=== PATIENT | male | born 1980 | race Caucasian/White ===

== ENCOUNTER 2016-08-10 21:37 | Emergency (ER) | payer BC ==
[2016-08-10 21:39] VITALS: BP 170/109; PULSE 83; RESP 16; TEMP 98.2; O2SAT 98
--- NOTE | 2016-08-10 21:44 | PD ---
Physical Exam Time Seen by Provider: 21:41 Narrative 35yo M requesting head CT. Has hx of hydrocephalus, brain CA, and surgery June 2015. Pressure GLASS all day. Cough, sinus and chest congestion x 1 week. Patient seen in triage. VS reviewed. Awaiting bed placement. Data Data Last Documented VS Vital Signs Date Time Temp Pulse Resp B/P Pulse Ox O2 Delivery O2 Flow Rate FiO2 08/10/16 21:39 98.2 83 16 170/109 98 Room Air MDM Supervised Visit with AIDE: Lissett Mccall Aug 10, 2016 21:44
[2016-08-10 21:55] VITALS: BP 154/98; PULSE 80; RESP 14; O2SAT 99
[2016-08-10 22:08] LABS: MEAN CORPUSCULAR HGB CONC 36.8 % (32.0-36.0)
[2016-08-10 22:28] LABS: AUTOMATED NEUTROPHIL # 5.5 TH/MM3 (1.8-7.7); BASOPHIL # 0.1 TH/MM3 (0-0.2); EOSINOPHIL # 0.3 TH/MM3 (0-0.4); EOSINOPHIL % 3.3 % (0.0-4.0); HEMATOCRIT 40.1 % (39.0-51.0); LYMPH % 27.1 % (9.0-44.0); LYMPHOCYTE # 2.5 TH/MM3 (1.0-4.8); MEAN CELL VOLUME 80.8 FL (80.0-100.0); MEAN CORPUSCULAR HEMOGLOBIN 29.8 PG (27.0-34.0); MONO % 8.9 % (0.0-8.0); NEUT % 59.7 % (16.0-70.0); PLATELET COUNT 344 TH/MM3 (150-450); RED BLOOD COUNT 4.97 MIL/MM3 (4.50-5.90); RED CELL DISTRIBUTION WIDTH 12.7 % (11.6-17.2); WHITE BLOOD COUNT 9.2 TH/MM3 (4.0-11.0)
[2016-08-10 22:29] LABS: HEMO FLAGS AUTO DIFF
--- NOTE | 2016-08-10 22:29 | PD ---
HPI Chief Complaint: Headache Time Seen by Provider: 22:00 Travel History International Travel<30 days: No Contact w/Intl Traveler<30days: No Traveled to known affect area: No History of Present Illness HPI 35yo M with PMH of brain cancer s/p resection 06/2015 here with c/o pressure in his head since this morning. States it feels similar to last time when he was diagnosed. Denies any fever, visual changes, chest pain, sob, n/v, abdominal pain, focal weakness or numbness or abnormal gait. Pt had hydrocephalus secondary to the tumor and had a [employer] shunt that became infected and subsequently removed. Pt has not needed another TEST B[employer] shunt because hydrocephalus resolved. He had radiation therapy 10/2015 and has been cancer free. Last MRI brain in 2016 showed no cancer. Pt is from [place]. Pt has had a recent cold and congestion. PFSH Past Medical History Cancer: Yes (Brain 2015) Radiation Therapy: Yes (2015) Tetanus Vaccination: < 5 Years Influenza Vaccination: No Past Surgical History Abdominal Surgery: Yes (hernia) Other Surgery: Yes (brain surgery x4) Social History Alcohol Use: Yes (Social) Tobacco Use: No Substance Use: No Allergies-Medications (Allergen,Severity, Reaction): Coded Allergies: No Known Allergies (Unverified , 08/10/16) Reported Meds & Prescriptions Reported Meds & Active Scripts Active No Active Prescriptions or Reported Medications Review of Systems Except as stated in HPI: all other systems reviewed are Neg Physical Exam Narrative GENERAL: 35yo M not in distress. SKIN: Focused skin assessment warm/dry. HEAD: Atraumatic. Normocephalic. EYES: Pupils equal and round at 4mm bilaterally. EOMI. Mild ptosis of right eye compared to left that has been there since he was diagnosed. No scleral icterus. No injection or drainage. ENT: No nasal bleeding or discharge. Mucous membranes pink and moist. NECK: Trachea midline. No JVD. CARDIOVASCULAR: Regular rate and rhythm. No murmur appreciated. RESPIRATORY: No accessory muscle use. Clear to auscultation. Breath sounds equal bilaterally. GASTROINTESTINAL: Abdomen soft, non-tender, nondistended. Hepatic and splenic margins not palpable. MUSCULOSKELETAL: No obvious deformities. No clubbing. No cyanosis. No edema. NEUROLOGICAL: Awake and alert. No obvious cranial nerve deficits. Motor grossly within normal limits. Normal speech. PSYCHIATRIC: Appropriate mood and affect; insight and judgment normal. Data Data Last Documented VS Vital Signs Date Time Temp Pulse Resp B/P Pulse Ox O2 Delivery O2 Flow Rate FiO2 08/10/16 21:55 80 14 154/98 99 Room Air 08/10/16 21:[address] Brain W/O Iv Contrast(Rout) (08/10/16 ) Complete Blood Count With Diff (08/10/16 22:07) Basic Metabolic Panel (Bmp) (08/10/16 22:07) Prothrombin Time / Inr (Pt) (08/10/16 22:07) Act Partial Throm Time (Ptt) (08/10/16 22:07) Acetaminophen (Tylenol) (08/10/16 23:15) Labs Laboratory Tests Test 08/10/16 22:14 White Blood Count 9.2 TH/MM3 Red Blood Count 4.97 MIL/MM3 Hemoglobin 14.8 GM/DL Hematocrit 40.1 % Mean Corpuscular Volume 80.8 FL Mean Corpuscular Hemoglobin 29.8 PG Mean Corpuscular Hemoglobin 36.8 % Concent Red Cell Distribution Width 12.7 % Platelet Count 344 TH/MM3 Mean Platelet Volume 7.3 FL Neutrophils (%) (Auto) 59.7 % Lymphocytes (%) (Auto) 27.1 % Monocytes (%) (Auto) 8.9 % Eosinophils (%) (Auto) 3.3 % Basophils (%) (Auto) 1.0 % Neutrophils # (Auto) 5.5 TH/MM3 Lymphocytes # (Auto) 2.5 TH/MM3 Monocytes # (Auto) 0.8 TH/MM3 Eosinophils # (Auto) 0.3 TH/MM3 Basophils # (Auto) 0.1 TH/MM3 CBC Comment AUTO DIFF Differential Comment AUTO DIFF CONFIRMED Platelet Estimate NORMAL Platelet Morphology Comment NORMAL Red Cell Morphology Comment NORMAL Prothrombin Time 10.4 SEC Prothromb Time International 0.9 RATIO Ratio Activated Partial 26.6 SEC Thromboplast Time Sodium Level 138 MEQ/L Potassium Level 3.8 MEQ/L Chloride Level 104 MEQ/L Carbon Dioxide Level 25.4 MEQ/L Anion Gap 9 MEQ/L Blood Urea Nitrogen 12 MG/DL Creatinine 0.91 MG/DL Estimat Glomerular Filtration 94 ML/MIN Rate Random Glucose 121 MG/DL Calcium Level 9.0 MG/DL MDM Medical Decision Making Medical Screen Exam Complete: Yes Emergency Medical Condition: Yes Interpretation(s) Laboratory Tests Test 08/10/16 22:14 White Blood Count 9.2 TH/MM3 (4.0-11.0) Red Blood Count 4.97 MIL/MM3 (4.50-5.90) Hemoglobin 14.8 GM/DL (13.0-17.0) Hematocrit 40.1 % (39.0-51.0) Mean Corpuscular Volume 80.8 FL (80.0-100.0) Mean Corpuscular Hemoglobin 29.8 PG (27.0-34.0) Mean Corpuscular Hemoglobin 36.8 % Concent (32.0-36.0) Red Cell Distribution Width 12.7 % (11.6-17.2) Platelet Count 344 TH/MM3 (150-450) Mean Platelet Volume 7.3 FL (7.0-11.0) Neutrophils (%) (Auto) 59.7 % (16.0-70.0) Lymphocytes (%) (Auto) 27.1 % (9.0-44.0) Monocytes (%) (Auto) 8.9 % (0.0-8.0) Eosinophils (%) (Auto) 3.3 % (0.0-4.0) Basophils (%) (Auto) 1.0 % (0.0-2.0) Neutrophils # (Auto) 5.5 TH/MM3 (1.8-7.7) Lymphocytes # (Auto) 2.5 TH/MM3 (1.0-4.8) Monocytes # (Auto) 0.8 TH/MM3 (0-0.9) Eosinophils # (Auto) 0.3 TH/MM3 (0-0.4) Basophils # (Auto) 0.1 TH/MM3 (0-0.2) CBC Comment AUTO DIFF Differential Comment AUTO DIFF CONFIRMED Platelet Estimate NORMAL (NORMAL) Platelet Morphology Comment NORMAL (NORMAL) Red Cell Morphology Comment NORMAL (NORMAL) Prothrombin Time 10.4 SEC (9.8-11.6) Prothromb Time International 0.9 RATIO Ratio Activated Partial 26.6 SEC Thromboplast Time (24.3-30.1) Sodium Level 138 MEQ/L (136-145) Potassium Level 3.8 MEQ/L (3.5-5.1) Chloride Level 104 MEQ/L (98-107) Carbon Dioxide Level 25.4 MEQ/L (21.0-32.0) Anion Gap 9 MEQ/L (5-15) Blood Urea Nitrogen 12 MG/DL (7-18) Creatinine 0.91 MG/DL (0.60-1.30) Estimat Glomerular Filtration 94 ML/MIN (>89) Rate Random Glucose 121 MG/DL (74-106) Calcium Level 9.0 MG/DL (8.5-10.1) Last Impressions Head CT 08/10/16 0000 Signed Impressions: Service Date/Time: Wednesday, August 10, 2016 22:40 - CONCLUSION: Postsurgical changes status post occipital craniotomy with no evidence of hemorrhage or mass. Guy Thomas MD Differential Diagnosis Brain tumor vs. hydrocephalus vs. sinus headache vs. tension headache Narrative Course 35yo M with c/o pressure in his head today. States it is mild and not really painful. Labs reviewed, no leukocytosis. BMP unremarkable. CT brain showed postsurgical changes status post occipital craniotomy with no evidence of hemorrhage or mass. Ventricles are normal for age. No new neurologic deficits. Although there is a possibility of SAH since the CT brain was completed more than 6 hours after the onset of headache, clinically he does not have thunderclap or severe headache. I explained to him that CT brain is not 100% sensitive after 6 hours for SAH and that there is a 92% sensitivity in the first 24 hours and decided not to do lumbar puncture since clinically, we have low suspicion for SAH. He understands the risks and benefits. Pt given acetaminophen. Pt feels a little better after acetaminophen. Pt is nontoxic appearing, states he can follow up with his oncologist next Monday or even sooner. Return precautions given. Diagnosis Primary Impression: Pressure in head Patient Instructions: General Instructions Departure Forms: Tests/Procedures Additional Instructions: Please follow up with your oncologist as soon as possible. Return to the ED if symptoms worsen. Med/Other Pt SpecificInfo: Prescription(s) given Scripts Acetaminophen (Tylenol)325 Mg Qky190 Mg PO Q6H PRN (PAIN SCALE 1 TO 4) #20 TAB Ref 0 Prov:Lizabeth Pang DO 08/11/16 Disposition: 01 DISCHARGE HOME Condition: Stable Lizabeth Pang DO Aug 10, 2016 22:28
[2016-08-10 22:35] LABS: APTT (PATIENT) 26.6 SEC (24.3-30.1); INTERNATIONAL NORMALIZED RATIO 0.9 RATIO; PROTHROMBIN TIME - PATIENT 10.4 SEC (9.8-11.6)
--- NOTE | 2016-08-10 22:49 | RADRPT ---
EXAM DATE/TIME: 08/10/2016 22:40 [facility] COMPARISON: No previous studies available for comparison. INDICATIONS : Headaches. History of brain cancer. RADIATION DOSE: 69.15 CTDIvol (mGy) MEDICAL HISTORY : Brain cancer Hydrocephalus SURGICAL HISTORY : Craniotomy. ENCOUNTER: Initial ACUITY: 1 day PAIN SCALE: 8/10 LOCATION: Bilateral cranial TECHNIQUE: Multiple contiguous axial images were obtained of the head. Using automated exposure control and adj ustment of the mA and/or kV according to patient size, radiation dose was kept as low as reasonably a chievable to obtain optimal diagnostic quality images. FINDINGS: CEREBRUM: The ventricles are normal for age. No evidence of midline shift, mass lesion, hemorrhage or acute in farction. No extra-axial fluid collections are seen. POSTERIOR FOSSA: The cerebellum and brainstem are intact. The 4th ventricle is midline. The cerebellopontine angle i s unremarkable. EXTRACRANIAL: The visualized portion of the orbits is intact. SKULL: The calvaria is intact. No evidence of skull fracture. Patient is status post occipital craniotomy. CONCLUSION: Postsurgical changes status post occipital craniotomy with no evidence of hemorrhage or mass. Guy Thomas MD on August 10, 2016 at 22:46 Board Certified Radiologist. This report was verified electronically.
[2016-08-10 23:02] LABS: PLATELET ESTIMATE SMEAR NORMAL (NORMAL); PLATELET MORPHOLOGY NORMAL (NORMAL); SCAN/DIFF AUTO DIFF CONFIRMED
[2016-08-10] MEDS ORDERED: ACETAMINOPHEN 325 MG TAB PO ONE (23:15)
[2016-08-10 23:53] LABS: BICARBONATE 25.4 MEQ/L (21.0-32.0); POTASSIUM 3.8 MEQ/L (3.5-5.1)
[2016-08-11] MEDS ORDERED: TYLE325T PO (00:21)
== END 2016-08-11 00:30 | disposition home or self-care (01) ==
LOC: NEPC 21:37
DX: R51 Headache (principal); Z85.841 Personal history of malignant neoplasm of brain
CPT/HCPCS: 70450; 80048; 85025; 85610; 85730